=== PATIENT | female | born 1990 ===

== ENCOUNTER 2022-03-22 11:07 | Emergency (ER) | payer OTHER, SELFPAY ==
[2022-03-22 11:26] VITALS: BP 118/77; PULSE 108; RESP 16; O2SAT 100
--- NOTE | 2022-03-22 12:43 | PC.NURSE ---
pt up to desk asking about bus schedule. care coordination contacted. pt out to bus stop.
== END 2022-03-22 13:44 | disposition left against medical advice (07) ==
LOC: ANHED 13:39
DX: R50.9 Fever, unspecified (principal)
CPT/HCPCS: 99199